=== PATIENT | female | born 1975 | race Asian ===

== ENCOUNTER 2021-11-05 03:23 | Emergency (ER) | payer OTHER ==
[~2021-11-05] VITALS: Ht 154.9 cm; Wt 60.9 kg
[2021-11-05 03:30] VITALS: BP 177/82
[2021-11-05] MEDS ORDERED: ERYTHROMYCIN 0.5% OPHTH OINTMENT 1GM TUBE. ONE (03:40)
[2021-11-05] MEDS ORDERED: TETRACAINE 0.5% OPHTH SOLUTION 4ML BOTTLE. ONE (03:40)
[2021-11-05] MEDS ORDERED: FLUORESCEIN 1MG EYE STRIP. ONE (03:40)
[2021-11-05] MEDS ORDERED: FLUORESCEIN 1MG EYE STRIP. OS ONE (03:45)
[2021-11-05] MEDS ORDERED: TETRACAINE 0.5% OPHTH SOLUTION 4ML BOTTLE. OS ONE (03:45)
[2021-11-05] MEDS ORDERED: ERYTHROMYCIN 0.5% OPHTH OINTMENT 1GM TUBE. OS ONE (03:45)
[2021-11-05] MEDS ORDERED: ERYT1OIN6 OP (03:59)
--- NOTE | 2021-11-05 03:59 | PHYS DOC ---
Past History Past Surgical History: No Surgical History Adult General Chief Complaint Chief Complaint: EYE PROBLEMS HPI HPI Patient is a 46-year-old female that presents to the emergency department with a chief complaint of left eye pain. States she was brushing her hair and accidentally scratched her eye with her fingernail. Denies any vision change. States she does have some tearing and pain about 4 out of 10, sharp and burning in nature. States it feels like there is some sand in her eye. States he is not up-to-date on her tetanus. Review of Systems Review of Systems Review of systems otherwise unremarkable except noted in HPI Current Medications Current Medications Current Medications Medications (Trade) Dose Ordered Sig/Sol Start Time Stop Time Status Last Admin Dose Admin Diphtheria/ Tetanus/Acell Pertussis (Boostrix) 0.5 ml ONCE ONCE 11/05/21 04:00 11/05/21 04:01 Erythromycin (Romycin) 0.25 inch 1X ONCE 11/05/21 03:45 11/05/21 03:48 DC Fluorescein Sodium (Ful-Jessi 1mg) 1 strip 1X ONCE 11/05/21 03:45 11/05/21 03:48 DC Tetracaine HCl (Tetracaine) 1 drop 1X ONCE 11/05/21 03:45 11/05/21 03:48 DC Allergies Allergies Allergies Coded Allergies Type Severity Reaction Last Updated Verified No Known Drug Allergies 11/05/21 No Physical Exam Physical Exam Constitutional: Well developed, well nourished, no acute distress, non-toxic appearance. [] HENT: Normocephalic, atraumatic, bilateral external ears normal, oropharynx moist, no oral exudates, nose normal. [] Eyes: PERRLA, EOMI, conjunctiva normal, no discharge, left-sided corneal abrasion, no change in vision. [] Neurologic: Alert and oriented X 3, normal motor function, normal sensory function, no focal deficits noted. [] Psychologic: Affect normal, judgement normal, mood normal. [] Current Patient Data Vital Signs Vital Signs Date Time Temp Pulse Resp B/P (MAP) Pulse Ox O2 Delivery O2 Flow Rate FiO2 11/05/21 03:30 98.2 107 20 177/82 (113) 96 Room Air EKG EKG [] Radiology/Procedures Radiology/Procedures [] Heart Score C/O Chest Pain: No Risk Factors: Risk Factors: DM, Current or recent (<one month) smoker, HTN, HLP, family history of CAD, obesity. Risk Scores: Risk Factors: DM, Current or recent (<one month) smoker, HTN, HLP, family history of CAD, obesity. Course & Med Decision Making Course & Med Decision Making Patient is a 46-year-old female presents with left eye pain Vital signs nonconcerning. Physical exam noted above. Tetanus updated. Eye exam with tetracaine notable for corneal abrasion. Started on erythromycin eyedrops in the ED. Provided eye covering and eye covering material for home. Advised on pain management. Given pain medication. Given contact information for local business liaison manager and advised to call in the morning. Gave return precautions to the ED. Patient grateful, verbalized understanding and agreed with plan of discharge. Dragon Disclaimer Dragon Disclaimer This electronic medical record was generated, in whole or in part, using a voice recognition dictation system. Departure Departure: Impression: Primary Impression: Corneal abrasion Disposition: HOME / SELF CARE / HOMELESS Condition: GOOD Referrals: PCP,STELLA (PCP) KAROLYN SÁNCHEZ Patient Instructions: Eye - Corneal Abrasion Additional Instructions: Thank you for coming into the emergency department tonight and allowing us to take care of you. Please read the attached information carefully to go over things we discussed. Please use your erythromycin eye ointment every 4 hours as demonstrated and discussed. You can use Tylenol and ibuprofen as needed for pain control. You can also use ice. Please follow-up in the morning with a local asphalt dauber. There are many but a local one that we referred to frequently is Dr. Sher at [phone] and there is also [place] [facility]. Please be sure to call a local asphalt dauber first thing in the morning and set up a follow-up for reevaluation in the next few days. Please also contact your primary care physician to update them. Please come back with new or concerning symptoms as discussed. Scripts Erythromycin Base (Erythromycin) 1 Gm Oint...g. 1 CM OP Q4HRS for corneal abrasion for 5 Days, #30 MISC ~1 cm ribbon into affected eye qid for 5 days Prov: KONG QUINONES MD 11/05/21 KONG QUINONES MD Nov 05, 2021 03:59
[2021-11-05] MEDS ORDERED: IBUPROFEN 600 MG TABLET. PO ONE (04:00)
[2021-11-05] MEDS ORDERED: DIPHTH,PERTUSS(ACELL),TET TOX 0.5 ML DISP.SYRIN. VAX IM ONE (04:00)
[2021-11-05] MEDS ORDERED: oxyCODONE/APAP 5/325 1 TAB TABLET PO ONE (04:00)
== END 2021-11-05 04:10 | disposition home or self-care (01) ==
LOC: ER 03:23
DX: S05.02XA Injury of conjunctiva and corneal abrasion without foreign body, left eye, initial encounter (principal); W50.4XXA Accidental scratch by another person, initial encounter; Y93.89 Activity, other specified; Y92.89 Other specified places as the place of occurrence of the external cause; Y99.8 Other external cause status
CPT/HCPCS: 90471; 90715; 99284